=== PATIENT | female | born 1990 | race Two or more races ===

== ENCOUNTER 2016-11-29 14:13 | Emergency (ER) | payer MEDICAID ==
[~2016-11-29 14:13] MED LIST: ATIVAN1 M2 PO; DEPAKOTE500 M1 PO; NO HOME MEDICATION XX
[2016-11-29] MEDS ORDERED: BENADRYL25 M3 PO (14:38)
== END 2016-11-29 15:09 ==
LOC: EDMED 14:13
DX: F20.9 Schizophrenia, unspecified (principal); Z98.890 Other specified postprocedural states; F17.200 Nicotine dependence, unspecified, uncomplicated

== ENCOUNTER 2017-01-11 07:26 | Emergency (ER) | payer MEDICAID ==
[~2017-01-11 07:26] MED LIST changes: +BENADRYL25 M3 PO
[2017-01-11] MEDS ORDERED: BACTRIM DS TAB1 EAC2 PO (07:58)
== END 2017-01-11 08:25 ==
LOC: EDMED 07:26
DX: S02.5XXA Fracture of tooth (traumatic), initial encounter for closed fracture (principal); L03.116 Cellulitis of left lower limb; L03.115 Cellulitis of right lower limb; W19.XXXA Unspecified fall, initial encounter

== ENCOUNTER 2017-01-14 20:59 | Emergency (ER) | payer MEDICAID ==
[~2017-01-14 20:59] MED LIST changes: +BACTRIM DS TAB1 EAC2 PO
[2017-01-14] MEDS ORDERED: BACTROBAN15 G1 TP (21:43)
[2017-01-14] MEDS ORDERED: BACTRIM DS TAB1 EAC2 PO (21:43)
== END 2017-01-14 21:50 ==
LOC: EDMED 20:59
DX: L08.9 Local infection of the skin and subcutaneous tissue, unspecified (principal); F20.9 Schizophrenia, unspecified; Z79.899 Other long term (current) drug therapy

== ENCOUNTER 2017-01-21 19:08 | Emergency (ER) | payer MEDICAID ==
[~2017-01-21 19:08] MED LIST changes: +BACTROBAN15 G1 TP
[2017-01-21] MEDS ORDERED: BACTRIM DS TAB1 EAC2 PO (20:29)
== END 2017-01-21 20:48 ==
LOC: EDMED 19:08
DX: L03.115 Cellulitis of right lower limb (principal); F20.9 Schizophrenia, unspecified; F32.9 Major depressive disorder, single episode, unspecified; F41.9 Anxiety disorder, unspecified; Z98.890 Other specified postprocedural states; Z79.899 Other long term (current) drug therapy